=== PATIENT | female | born 1985 | race Caucasian/White ===

== ENCOUNTER 2025-05-01 09:54 | Emergency (ER) | payer OTHER, SELFPAY ==
[2025-05-01 09:54] VITALS: BP 156/96; PULSE 94; RESP 14; TEMP 36.2; O2SAT 98; BMI 23.1
--- NOTE | 2025-05-01 10:09 | EDS_ITS ---
HPI History of Present Illness Chief Complaint: Dental Onset/Context/Timing Onset: Days (3) Context: Gradual Onset Timing: Continuous Quality: Sharp, aching Location: Left lower first molar Worsened by: Orajel Relieved by: - (Nothing) Associated Symptoms Assocated Symptom - Dental: Negative for fever, jaw swelling, face swelling, cold sensitivity or hot sensitivity Narrative Narrative: Patient complains of left lower dental pain that has been getting worse over the past 3 days. Patient describes her pain as sharp and aching. Patient states that a piece of her tooth broke off. Patient states she has not been able to get into see a dentist. Patient states Orajel makes her pain worse. Patient states nothing makes it better. Patient states she has been using ibuprofen with no improvement. Patient denies any fevers or chills. Patient denies any hot or cold sensitivity. Patient denies any jaw or facial swelling. PFSH PFSH Medical History no medical history no medical history Home Medications ?Medication ?Instructions ?Recorded ?Last Taken ?Type hydrocodone-acetaminophen 5-325mg 1 tab PO Q6H PRN PRN Pain 3 days 05/01/25 Unknown Rx 5mg-325mg #10 TABLETS penicillin V potassium 500 mg 500 mg PO 4X/DAY #40 tab s 05/01/25 Unknown Rx tablet Allergy/AdvReac Type Severity Reaction Status Date / Time No Known Allergies Allergy Verified 05/01/25 09:55 Surgical History no surgical history no surgical history Social History (Updated 05/01/25 @ 10:[address] Emir Nelson, DO) Smoking Status: Current every day smoker tobacco type: cigarettes ROS ROS ED Constitutional Constitutional ED: Denies chills or fever(s) Eyes Eyes: Denies blurry vision or change in vision ENT ENT ED: Denies rhinorrhea or sore throat Cardiovascular Cardiovascular: Denies chest pain or palpitations Respiratory/Chest Respiratory/Chest: Denies cough or dyspnea Gastrointestinal Gastrointestinal: Reports nausea; Denies vomiting Genitourinary Genitourinary ED: Denies dysuria or hematuria Musculoskeletal Musculoskeletal: Reports back pain; Denies neck pain Integumentary Denies abscess or rash Neurologic Neurologic: Denies headache(s) or weakness Allergic/Immunologic Allergic/Immunologic ED: Denies mouth swelling or urticaria EXAM Physical Exam Const Vital Signs: 05/01/25 09:54 Temperature 97.1 F L Temperature Source Temporal Pulse Rate 94 Respiratory Rate 14 Blood Pressure 156/96 H Blood Pressure Mean 116 Pulse Ox 98 Oxygen Delivery Method Room Air Positive well nourished and well developed General Appearance ED: well developed and NAD HEENT Mouth ED: Yes oral and palatal mucosa normal and Yes oral and palatal mucosa abnormal Mouth: oral and palatal mucosa normal and oral and palatal mucosa abnormal Teeth and Gingiva: caries Neck supple and no JVD General: Negative for anterior neck swelling, tenderness or submandibular swelling Neuro oriented x3, CN's II-XII intact bilaterally, moves all extremities, no focal motor deficits and no sensory deficits noted Sensorium / Orientation: alert Motor Exam: strength 5/5 throughout MDM MDM MDM Narrative Medical decision making narrative: Patient was advised that this is most likely infected dental caries. Patient was given a dose of Pen-Vee K here and a prescription for Pen-Vee K. Patient was also given a dose of Calvert here and a prescription for a short course of Calvert. Patient was given a dental referral sheet. Patient was instructed to follow-up in 5 to 7 days. Patient understood and was agreeable with the plan. All questions were answered. Discharge Plan Triage Chief Complaint: Dental ED Provider: Emir Nelson Dx/Rx/DC Orders Clinical Impression: Infected dental caries, Odontalgia, Tobacco use Instructions: ED Dental Pain, ED Dental Cavity Prescriptions: New hydrocodone-acetaminophen 5-325 mg tablet 1 tab PO Q6H PRN PRN (Reason: Pain) 3 Days Qty: 10 0RF penicillin V potassium 500 mg tablet 500 mg PO 4X/DAY Qty: 40 0RF Print Language: Bhutanese Disposition Disposition: Home, Self Care
[2025-05-01] MEDS: Penicillin Vk 250 MG Tablet 500 MG PO (11:13)
[2025-05-01 11:18] VITALS: BP 146/95; PULSE 87; RESP 16; TEMP 36.8; O2SAT 100
== END 2025-05-01 11:20 | disposition home or self-care (01) ==
LOC: ED 10:45
PROVIDERS: Emergency Provider Emergency Medicine; Visit Provider Emergency Medicine
DX: K02.9 Dental caries, unspecified (principal); K08.89 Other specified disorders of teeth and supporting structures; F17.210 Nicotine dependence, cigarettes, uncomplicated
CPT/HCPCS: 99282